=== PATIENT | female | born 1980 | race African-American/Black ===

== ENCOUNTER 2017-11-05 13:38 | Emergency (ER) | payer OTHER ==
[~2017-11-05] VITALS: Ht 172.7 cm; Wt 100.0 kg
[~2017-11-05 13:38] MED LIST: DICL75 PO
[2017-11-05] MEDS ORDERED: ZIPRASIDONE MESYLATE 20 MG VIAL IM ONE (14:15)
[2017-11-05] MEDS ORDERED: OLANZapine ODT 10 MG TAB PO ONE (14:45)
--- NOTE | 2017-11-05 14:52 | PD ---
HPI Chief Complaint: Psychiatric Symptoms Time Seen by Provider: 14:40 Travel History International Travel<30 days: No Contact w/Intl Traveler<30days: No History of Present Illness HPI This is a 37-year-old female who has a history of some psychiatric disease who presents to the emergency department tearful, yelling, under a White act by police reporting that she is hearing voices that are telling her to kill herself intermittently. Here the patient reports that she has never been the same since her brother . She had her children taken away from her and then her best friend . She was incarcerated recently and was on psychiatric medications but has not been on them since she has been out. She does say she hears voices, intermittent, severe, telling her to hurt herself. She says the only thing she wants to live for is her children. PFSH Past Medical History Asthma: Yes Autoimmune Disease: No Cancer: No Cardiovascular Problems: No Endocrine: No Genitourinary: No Immune Disorder: No Musculoskeletal: Yes Neurologic: No Respiratory: Yes Immunizations Current: Yes Social History Alcohol Use: No Tobacco Use: Yes Substance Use: No Allergies-Medications (Allergen,Severity, Reaction): Coded Allergies: acetaminophen (Unverified Allergy, Unknown, 05/15/17) amoxicillin (Unverified Allergy, Unknown, 05/15/17) penicillin G (Unverified Allergy, Unknown, 05/15/17) propoxyphene (Unverified Allergy, Unknown, 05/15/17) sulfamethoxazole (Unverified Allergy, Unknown, 05/15/17) tramadol (Unverified Allergy, Unknown, 05/15/17) trimethoprim (Unverified Allergy, Unknown, 05/15/17) Reported Meds & Prescriptions Reported Meds & Active Scripts Active Diclofenac Sodium 75 Mg Tab 75 Mg PO Q12HR PRN Review of Systems Except as stated in HPI: all other systems reviewed are Neg Physical Exam Narrative GENERAL:Well appearing, no acute distress SKIN: Focused skin assessment warm and dry. HEAD: Atraumatic. Normocephalic. EYES: Pupils equal and round. No injection or drainage. ENT: Moist mucous membranes NECK: Trachea midline. CARDIOVASCULAR: Regular rate and rhythm. No murmur appreciated. RESPIRATORY: Clear to auscultation. Breath sounds equal bilaterally. GASTROINTESTINAL: Abdomen soft, non-tender, nondistended. MUSCULOSKELETAL: No obvious deformities. NEUROLOGICAL: Awake and alert. No obvious cranial nerve deficits. Moving all extremities. PSYCHIATRIC: Paranoid, somewhat disorganized, acknowledging auditory hallucinations, responding to internal stimuli Data Data Last Documented VS Vital Signs Date Time Temp Pulse Resp B/P (MAP) Pulse Ox O2 Delivery O2 Flow Rate FiO2 11/05/17 16:07 99.3 86 15 111/73 (86) 98 Room Air Orders Orders Complete Blood Count With Diff (11/05/17 14:08) Comprehensive Metabolic Panel (11/05/17 14:08) Thyroid Stimulating Hormone (11/05/17 14:08) Ed Urine Pregnancytest Poc (11/05/17 14:08) Psych Screen (11/05/17 14:08) Drug Screen, Random Urine (11/05/17 14:08) Ziprasidone Inj (Geodon Inj) (11/05/17 14:15) Olanzapine Odt (Zyprexa Zydis Odt) (11/05/17 14:45) Haloperidol Inj (Haldol Inj) (11/05/17 15:00) Lorazepam Inj (Ativan Inj) (11/05/17 15:00) Diphenhydramine Inj (Benadryl Inj) (11/05/17 15:00) Restraints Violent (11/05/17 14:54) Haloperidol Inj (Haldol Inj) (11/05/17 16:00) Labs Laboratory Tests Test 11/05/17 16:30 [facility] Medical Decision Making Medical Screen Exam Complete: Yes Emergency Medical Condition: Yes Differential Diagnosis Psychosis, substance intoxication, depression, bipolar disorder, schizophrenia Narrative Course This is a 37-year-old female who presents to the emergency department with paranoia, agitation and reporting auditory hallucinations. Initially I was able to verbally de-escalate the patient but then she became increasingly agitated and tried to elope out of the emergency department. On my exam my impression is that she is psychotic and she is responding to internal stimuli, intermittently looking towards the side and outside the room interrupting her conversation. She was chemically and physically restrained and she requires psychiatric evaluation. Faith Sy MD Nov 05, 2017 14:51
[2017-11-05] MEDS ORDERED: LORazepam 2 MG/ML VIAL IM ONE (15:00)
[2017-11-05] MEDS ORDERED: HALOPERIDOL LACTATE 5 MG/ML AMP IM ONE ×2 (15:00→16:00)
[2017-11-05] MEDS ORDERED: diphenhydrAMINE HCL 50 MG/ML VIAL IM ONE (15:00)
[2017-11-05 16:07] VITALS: BP 111/73; PULSE 86; RESP 15; TEMP 99.3; O2SAT 98
[2017-11-05 17:20] LABS: AUTOMATED NEUTROPHIL # 6.6 TH/MM3 (1.8-7.7); BASOPHIL % 0.3 % (0.0-2.0); EOSINOPHIL # 0.1 TH/MM3 (0-0.4); EOSINOPHIL % 0.9 % (0.0-4.0); HEMATOCRIT 39.6 % (35.0-46.0); HEMOGLOBIN 13.3 GM/DL (11.6-15.3); LYMPH % 28.6 % (9.0-44.0); LYMPHOCYTE # 2.9 TH/MM3 (1.0-4.8); MEAN CELL VOLUME 89.8 FL (80.0-100.0); MEAN CORPUSCULAR HEMOGLOBIN 30.1 PG (27.0-34.0); MEAN CORPUSCULAR HGB CONC 33.6 % (32.0-36.0); MEAN PLATELET VOLUME 8.1 FL (7.0-11.0); MONO % 5.6 % (0.0-8.0); MONOCYTE # 0.6 TH/MM3 (0-0.9); NEUT % 64.6 % (16.0-70.0); PLATELET COUNT 320 TH/MM3 (150-450); RED BLOOD COUNT 4.41 MIL/MM3 (4.00-5.30); RED CELL DISTRIBUTION WIDTH 15.8 % (11.6-17.2); WHITE BLOOD COUNT 10.2 TH/MM3 (4.0-11.0)
[2017-11-05 17:42] LABS: ALBUMIN 3.6 GM/DL (3.4-5.0); AST (GOT) 13 U/L (15-37); BICARBONATE 28.1 MEQ/L (21.0-32.0); BLOOD UREA NITROGEN 6 MG/DL (7-18); CALCIUM 9.3 MG/DL (8.5-10.1); CHLORIDE 108 MEQ/L (98-107); CREATININE 0.88 MG/DL (0.50-1.00); GLOMERULAR FILTRATION RATE 87 ML/MIN (>89); GLUCOSE,RANDOM 69 MG/DL (74-106); SODIUM (NA) 143 MEQ/L (136-145)
[2017-11-05 17:43] LABS: ALT (GPT) 14 U/L (10-53)
[2017-11-05 17:53] LABS: ALKALINE PHOSPHATASE 56 U/L (45-117); TOTAL BILIRUBIN ADULT 0.3 MG/DL (0.2-1.0)
[2017-11-05 19:29] VITALS: BP 126/66; PULSE 80; RESP 18; O2SAT 99
--- NOTE | 2017-11-05 19:57 | PD ---
Data Data Last Documented VS Vital Signs Date Time Temp Pulse Resp B/P (MAP) Pulse Ox O2 Delivery O2 Flow Rate FiO2 11/05/17 19:29 80 18 126/66 (86) 99 Room Air 11/05/17 16:07 99.3 Orders Orders Complete Blood Count With Diff (11/05/17 14:08) Comprehensive Metabolic Panel (11/05/17 14:08) Thyroid Stimulating Hormone (11/05/17 14:08) Ed Urine Pregnancytest Poc (11/05/17 14:08) Psych Screen (11/05/17 14:08) Drug Screen, Random Urine (11/05/17 14:08) Ziprasidone Inj (Geodon Inj) (11/05/17 14:15) Olanzapine Odt (Zyprexa Zydis Odt) (11/05/17 14:45) Haloperidol Inj (Haldol Inj) (11/05/17 15:00) Lorazepam Inj (Ativan Inj) (11/05/17 15:00) Diphenhydramine Inj (Benadryl Inj) (11/05/17 15:00) Restraints Violent (11/05/17 14:54) Haloperidol Inj (Haldol Inj) (11/05/17 16:00) Potassium Bicarb Eff (Effer-K Eff) (11/05/17 20:00) Labs Laboratory Tests Test 11/05/17 16:30 11/05/17 17:36 White Blood Count 10.2 TH/MM3 Red Blood Count 4.41 MIL/MM3 Hemoglobin 13.3 GM/DL Hematocrit 39.6 % Mean Corpuscular Volume 89.8 FL Mean Corpuscular Hemoglobin 30.1 PG Mean Corpuscular Hemoglobin Concent 33.6 % Red Cell Distribution Width 15.8 % Platelet Count 320 TH/MM3 Mean Platelet Volume 8.1 FL Neutrophils (%) (Auto) 64.6 % Lymphocytes (%) (Auto) 28.6 % Monocytes (%) (Auto) 5.6 % Eosinophils (%) (Auto) 0.9 % Basophils (%) (Auto) 0.3 % Neutrophils # (Auto) 6.6 TH/MM3 Lymphocytes # (Auto) 2.9 TH/MM3 Monocytes # (Auto) 0.6 TH/MM3 Eosinophils # (Auto) 0.1 TH/MM3 Basophils # (Auto) 0.0 TH/MM3 CBC Comment DIFF FINAL Differential Comment Blood Urea Nitrogen 6 MG/DL Creatinine 0.88 MG/DL Random Glucose 69 MG/DL Total Protein 7.0 GM/DL Albumin 3.6 GM/DL Calcium Level 9.3 MG/DL Alkaline Phosphatase 56 U/L Aspartate Amino Transf (AST/SGOT) 13 U/L Alanine Aminotransferase (ALT/SGPT) 14 U/L Total Bilirubin 0.3 MG/DL Sodium Level 143 MEQ/L Potassium Level 3.0 MEQ/L Chloride Level 108 MEQ/L Carbon Dioxide Level 28.1 MEQ/L Anion Gap 7 MEQ/L Estimat Glomerular Filtration Rate 87 ML/MIN Thyroid Stimulating Hormone 3rd Gen 1.230 uIU/ML Urine Opiates Screen POS Urine Barbiturates Screen NEG Urine Amphetamines Screen NEG Urine Benzodiazepines Screen POS Urine Cocaine Screen NEG Urine Cannabinoids Screen POS MDM Supervised Visit with WILLIAM: No Narrative Course This case was checked out to me by Dr. Daigle at 5 PM. She is under White act Suspected her of polysubstance abuse When I evaluate her she is still in restraints. However she is mentally calm and cooperative and speaking intelligently. She says that she like to be out of the restraints and will cooperate We are going to remove one every 15 minutes as long as she is cooperative and calm I reviewed her lab studies. There fairly normal except for hypokalemia of 3.0 and a tox screen positive for multiple substances I gave her 50 mEq oral potassium replacement She has normal vital signs and is mentally much improved and is medically stable at this time She will get psychiatric evaluation hopefully soon Diagnosis Primary Impression: Altered mental status Qualified Codes: R40.4 - Transient alteration of awareness Additional Impressions: Polysubstance dependence including opioid type drug, episodic abuse, with delirium Hypokalemia Todd Nettles MD Nov 05, 2017 19:57
[2017-11-05] MEDS ORDERED: POTASSIUM BICARBONATE 25 MEQ EFFERVESCENT TAB PO ONE (20:00)
[2017-11-06 03:00] VITALS: BP 122/60; PULSE 82; RESP 18; TEMP 98; O2SAT 99
[2017-11-06 07:03] VITALS: BP 128/75; PULSE 86; RESP 18; TEMP 98; O2SAT 99
[2017-11-06 07:54] VITALS: BP 130/79; PULSE 100; RESP 18; O2SAT 100
[2017-11-06] MEDS ORDERED: diphenhydrAMINE HCL 25 MG CAP PO ONE (11:15)
[2017-11-06 13:55] VITALS: BP 138/79; PULSE 72; RESP 18; TEMP 98.4; O2SAT 99
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
--- NOTE | 2017-11-06 15:20 | PD ---
Physical Exam Time Seen by Provider: 15:18 LIZABETH Bazan has evaluated the patient, lifted the White act and cleared the patient for discharge. Data Data Last Documented VS Vital Signs Date Time Temp Pulse Resp B/P (MAP) Pulse Ox O2 Delivery O2 Flow Rate FiO2 11/06/17 13:55 98.4 72 18 138/79 (98) 99 Room Air Orders Orders Complete Blood Count With Diff (11/05/17 14:08) Comprehensive Metabolic Panel (11/05/17 14:08) Thyroid Stimulating Hormone (11/05/17 14:08) Ed Urine Pregnancytest Poc (11/05/17 14:08) Psych Screen (11/05/17 14:08) Drug Screen, Random Urine (11/05/17 14:08) Ziprasidone Inj (Geodon Inj) (11/05/17 14:15) Olanzapine Odt (Zyprexa Zydis Odt) (11/05/17 14:45) Haloperidol Inj (Haldol Inj) (11/05/17 15:00) Lorazepam Inj (Ativan Inj) (11/05/17 15:00) Diphenhydramine Inj (Benadryl Inj) (11/05/17 15:00) Restraints Violent (11/05/17 14:54) Haloperidol Inj (Haldol Inj) (11/05/17 16:00) Potassium Bicarb Eff (Effer-K Eff) (11/05/17 20:00) Diet Regular Basic (11/06/17 Breakfast) Diphenhydramine (Benadryl) (11/06/17 11:15) Labs Laboratory Tests Test 11/05/17 16:30 11/05/17 17:36 White Blood Count 10.2 TH/MM3 Red Blood Count 4.41 MIL/MM3 Hemoglobin 13.3 GM/DL Hematocrit 39.6 % Mean Corpuscular Volume 89.8 FL Mean Corpuscular Hemoglobin 30.1 PG Mean Corpuscular Hemoglobin Concent 33.6 % Red Cell Distribution Width 15.8 % Platelet Count 320 TH/MM3 Mean Platelet Volume 8.1 FL Neutrophils (%) (Auto) 64.6 % Lymphocytes (%) (Auto) 28.6 % Monocytes (%) (Auto) 5.6 % Eosinophils (%) (Auto) 0.9 % Basophils (%) (Auto) 0.3 % Neutrophils # (Auto) 6.6 TH/MM3 Lymphocytes # (Auto) 2.9 TH/MM3 Monocytes # (Auto) 0.6 TH/MM3 Eosinophils # (Auto) 0.1 TH/MM3 Basophils # (Auto) 0.0 TH/MM3 CBC Comment DIFF FINAL Differential Comment Blood Urea Nitrogen 6 MG/DL Creatinine 0.88 MG/DL Random Glucose 69 MG/DL Total Protein 7.0 GM/DL Albumin 3.6 GM/DL Calcium Level 9.3 MG/DL Alkaline Phosphatase 56 U/L Aspartate Amino Transf (AST/SGOT) 13 U/L Alanine Aminotransferase (ALT/SGPT) 14 U/L Total Bilirubin 0.3 MG/DL Sodium Level 143 MEQ/L Potassium Level 3.0 MEQ/L Chloride Level 108 MEQ/L Carbon Dioxide Level 28.1 MEQ/L Anion Gap 7 MEQ/L Estimat Glomerular Filtration Rate 87 ML/MIN Thyroid Stimulating Hormone 3rd Gen 1.230 uIU/ML Urine Opiates Screen POS Urine Barbiturates Screen NEG Urine Amphetamines Screen NEG Urine Benzodiazepines Screen POS Urine Cocaine Screen NEG Urine Cannabinoids Screen POS MDM Supervised Visit with WILLIAM: No Narrative Course LIZABETH Hamlin has evaluated the patient, lifted the White act and cleared the patient for discharge. Patient contracts safety. Denies suicidal or homicidal ideations. Patient will be provided community resource packet to / DIXIE for follow-up. Has friends and family for support. Patient was medically cleared by alternate provider prior to psych screening. Patient has been evaluated by psychiatry and and is now cleared for discharge. Diagnosis Primary Impression: Adjustment disorder Qualified Codes: F43.20 - Adjustment disorder, unspecified Additional Impression: Polysubstance dependence including opioid type drug, episodic abuse, with delirium Referrals: DIXIE (Out patient) [facility] Primary Care Physician Psychiatrist Let[facility] Patient Instructions: General Instructions, Mood Disorders (ED), Polysubstance Abuse (ED) Additional Instruction: Contract safety to your self and others Stop using drugs Follow-up with psychiatry Follow-up with primary care provider Follow-up with Malik Lyn Return to the emergency department immediately with worsening of symptoms Med/Other Pt SpecificInfo: No Change to Meds, No Meds Exist/No RX given Disposition: DISCHARGE HOME Condition: Stable Suyapa Fajardo Nov 06, 2017 15:20
== END 2017-11-06 15:40 | disposition home or self-care (01) ==
LOC: NEPD 13:38 → NEPJ 11-06 15:40
DX: F43.20 Adjustment disorder, unspecified (principal); F19.221 Other psychoactive substance dependence with intoxication delirium; E87.6 Hypokalemia; Z72.0 Tobacco use
CPT/HCPCS: 80053; 80307; 84443; 84703; 85025; 96372; 99285; J1200; J1630; J2060

== ENCOUNTER 2017-11-12 11:12 | Emergency (ER) | payer OTHER ==
[2017-11-12 11:14] VITALS: BP 124/67; PULSE 91; RESP 14; TEMP 98.2; O2SAT 98
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
[2017-11-12] MEDS ORDERED: HYDR-2374 PO (12:21)
[2017-11-12 12:38] LABS: BICARBONATE 26.8 MEQ/L (21.0-32.0); CALCIUM 8.6 MG/DL (8.5-10.1); CREATININE 0.76 MG/DL (0.50-1.00); MAGNESIUM 2.2 MG/DL (1.5-2.5)
[2017-11-12] MEDS ORDERED: POTASSIUM CHLORIDE 20 MEQ CONTROLLED RELEASE TAB PO ONE (12:45)
[2017-11-12] MEDS ORDERED: LOMO2.5T PO (12:51)
== END 2017-11-12 13:08 | disposition home or self-care (01) ==
LOC: NEPK 11:12
DX: G89.29 Other chronic pain (principal); M79.604 Pain in right leg; K52.9 Noninfective gastroenteritis and colitis, unspecified; E87.6 Hypokalemia; J45.909 Unspecified asthma, uncomplicated; Z72.0 Tobacco use; Z88.2 Allergy status to sulfonamides; Z88.0 Allergy status to penicillin; Z88.8 Allergy status to other drugs, medicaments and biological substances
CPT/HCPCS: 80048; 83735; 84703; 99283